=== PATIENT | male | born 1960 | race Two or more races ===

== ENCOUNTER 2018-04-27 10:39 | Emergency (ER) | payer MEDICARE ==
[~2018-04-27] VITALS: Ht 175.3 cm; Wt 88.0 kg
[2018-04-27 12:11] LABS: EOSINOPHILS % 3.4 % (0.0-5.0); HEMATOCRIT. 47.8 % (42.0-52.0); HEMOGLOBIN. 16.1 g/dL (14.0-18.0); LYMPHOCYTES % 29.1 % (20.0-50.0); MEAN CORPUSCULAR HEMOGLOBIN 29.7 pg (28.0-32.0); MEAN CORPUSCULAR VOLUME 88.6 fL (80.0-94.0); MEAN PLATELET VOLUME 9.5 fl (7.4-10.4); MONOCYTES % 8.1 % (2.0-8.0); NEUTROPHILS % 58.4 % (40.0-76.0); PLATELET 170 x1000/uL (130-400); RED CELL DISTRIBUTION WIDTH 14.3 % (11.6-14.6)
[2018-04-27 12:17] LABS: CHLORIDE 109 mEq/L (98-107)
[2018-04-27 13:03] VITALS: BP 131/87
== END 2018-04-27 13:43 | disposition home or self-care (01) ==
LOC: ER 10:39
DX: R07.9 Chest pain, unspecified (principal); Z87.891 Personal history of nicotine dependence
CPT/HCPCS: 36415; 71045; 83880; 84484; 93005; 99284